=== PATIENT | female | born 1985 | race Two or more races ===

== ENCOUNTER 2019-04-23 11:55 | Emergency (ER) | payer MEDICAID ==
[~2019-04-23] VITALS: Ht 165.1 cm; Wt 112.9 kg
[~2019-04-23 11:55] MED LIST: PREN-96 PO
[2019-04-23 16:56] LABS: Basophils # (auto) 0.1 uL; Basophils % (auto) 0.8 % (0.0-2.0); Eosinophils # (auto) 0.3 uL; Eosinophils % (auto) 3.5 % (0.0-7.0); Hematocrit 45.1 % (36.0-46.0); Lymphocytes % (auto) 26.5 % (10.0-50.0); Mean Corpuscular Hemoglobin 26.6 pg (28.0-32.0); Mean Corpuscular Hgb Conc. 33.2 g/dL (32.0-36.0); Mean Corpuscular Volume 79.9 fL (80.0-100.0); Monocytes # (auto) 0.5 uL; Monocytes % (auto) 6.2 % (0.0-12.0); Neutrophils # (auto) 4.9 uL; Nucleated Red Blood Cells % 0.2 %; Platelet Count (auto) 193 10^3/uL (140-450); Red Blood Cells 5.65 10^6/uL (4.0-5.20); Red Cell Distribution Width 13.5 % (11.8-14.3); White Blood Cell 7.7 10^3/uL (4.4-10.8)
[2019-04-23 21:05] LABS: Urine Bacteria MANY /hpf (None Seen); Urine Blood Negative /uL (Negative); Urine Mucus FEW (None Seen); Urine Specific Gravity 1.015 (1.001-1.035); Urine WBC 13 /hpf (0 - 5)
== END 2019-04-23 23:53 | disposition home or self-care (01) ==
LOC: ER 11:55
DX: O9A.211 Injury, poisoning and certain other consequences of external causes complicating pregnancy, first trimester (principal); S39.011A Strain of muscle, fascia and tendon of abdomen, initial encounter; Z3A.01 Less than 8 weeks gestation of pregnancy; X58.XXXA Exposure to other specified factors, initial encounter; Y93.89 Activity, other specified; Y99.8 Other external cause status; Y92.89 Other specified places as the place of occurrence of the external cause
CPT/HCPCS: 36415; 76801; 81001; 84702; 85025

== ENCOUNTER 2019-10-05 07:14 | Observation (INO) | payer MEDICAID | END 2019-11-12 10:02 | disposition home or self-care (01) | DRG 566 | LOC: LDRP 11-12 08:41 | PROVIDERS: ADMIT Specialist; ATTEND Specialist | DX: O24.419 Gestational diabetes mellitus in pregnancy, unspecified control (principal); Z3A.36 36 weeks gestation of pregnancy | CPT/HCPCS: 59025; 76818; 81002; 82948; 82962; G0378 ==

== ENCOUNTER 2019-11-05 04:32 | Observation (INO) | payer MEDICAID ==
[~2019-11-05] VITALS: Ht 165.1 cm; Wt 131.5 kg
[2019-11-05] MEDS ORDERED: LACTATED RINGER'S 1,000 ML IV ONE (05:20)
[2019-11-05] MEDS ORDERED: TERBUTALINE SULFATE 1 MG/ML 1ML VIAL SC SCH (05:30)
== END 2019-11-05 07:50 | disposition home or self-care (01) | DRG 566 ==
LOC: LDRP 04:32
PROVIDERS: ADMIT Specialist; ATTEND Specialist
DX: O24.419 Gestational diabetes mellitus in pregnancy, unspecified control (principal); Z3A.35 35 weeks gestation of pregnancy
CPT/HCPCS: 59025; 76818; 81002; 82948; 96360; 96361; 96372; G0378; J3105

== ENCOUNTER 2019-11-19 08:10 | Observation (INO) | payer MEDICAID | END 2019-11-19 09:20 | disposition home or self-care (01) | DRG 566 | LOC: LDRP 08:10 | PROVIDERS: ADMIT Specialist; ATTEND Specialist | DX: O24.410 Gestational diabetes mellitus in pregnancy, diet controlled (principal); Z3A.37 37 weeks gestation of pregnancy | CPT/HCPCS: 59025; 76818; 81002; 82948; 82962; G0378 ==

== ENCOUNTER 2019-11-22 11:32 | Observation (INO) | payer MEDICAID | END 2019-11-22 13:18 | disposition home or self-care (01) | LOC: LDRP 11:32 | PROVIDERS: ADMIT Specialist; ATTEND Specialist | DX: O24.410 Gestational diabetes mellitus in pregnancy, diet controlled (principal); O62.9 Abnormality of forces of labor, unspecified; Z3A.37 37 weeks gestation of pregnancy | CPT/HCPCS: 59025; 76818; 82962; G0378; 81002 ==

== ENCOUNTER 2019-11-28 12:16 | Observation (INO) | payer MEDICAID ==
--- NOTE | 2019-11-28 13:05 | NUR ---
PRE OP COVID TEST COLLECTED.
== END 2019-11-28 13:19 | disposition home or self-care (01) ==
LOC: LDRP 12:16
PROVIDERS: ADMIT Obstetrics & Gynecology; ATTEND Obstetrics & Gynecology
DX: Z01.812 Encounter for preprocedural laboratory examination (principal); Z20.828 Contact with and (suspected) exposure to other viral communicable diseases; O24.410 Gestational diabetes mellitus in pregnancy, diet controlled; Z3A.38 38 weeks gestation of pregnancy
CPT/HCPCS: 59025; 81002; 82948; 82962; G0378; U0003

== ENCOUNTER 2019-12-03 08:09 | Inpatient (IN) | payer MEDICAID ==
[2019-12-03] VITALS (9 sets, daily range): BP systolic 104–132; BP diastolic 61–73
[~2019-12-03] VITALS: Ht 30.5 cm; Wt 0.5 kg
[2019-12-03] MEDS ORDERED: LACTATED RINGER'S 1,000 ML IV SCH ×2 (08:16→14:38)
[2019-12-03 09:00] LABS: Basophils # (auto) 0 10 ^3/uL (0-0.2); Eosinophils # (auto) 0.1 10 ^3/uL (0-0.8); Lymphocytes # (auto) 1.4 10 ^3/uL (0.4-5.4); Monocytes # (auto) 0.5 10 ^3/uL (0-1.3); Neutrophils # (auto) 4.2 10 ^3/uL (1.6-8.6); Red Cell Distribution Width 16.1 % (11.8-14.3)
[2019-12-03 09:02] LABS: Basophils % (auto) 0.5 % (0.0-2.0); Eosinophils % (auto) 1.7 % (0.0-7.0); Hematocrit 39.9 % (36.0-46.0); Hemoglobin 12.8 g/dL (12.2-16.2); Lymphocytes % (auto) 22.5 % (10.0-50.0); Mean Corpuscular Hemoglobin 24.5 pg (28.0-32.0); Mean Corpuscular Volume 76.6 fL (80.0-100.0); Monocytes % (auto) 7.4 % (0.0-12.0); Neutrophils % (auto) 67.9 % (37.0-80.0); Nucleated Red Blood Cells % 0.2 %; Platelet Count (auto) 208 10^3/uL (140-450); Red Blood Cells 5.21 10^6/uL (4.0-5.20); White Blood Cell 6.1 10^3/uL (4.4-10.8)
[2019-12-03 09:04] LABS: Urine Bacteria MANY /hpf (None Seen); Urine Blood 1+ /uL (Negative); Urine Mucus FEW (None Seen); Urine Specific Gravity 1.017 (1.001-1.035); Urine WBC 16 /hpf (0 - 5)
[2019-12-03 09:11] LABS: INR 0.92 (0.9-1.15); Partial Thromboplastin Time 26.7 sec (23.0-31.2)
[2019-12-03 09:16] LABS: Albumin 2.6 g/dL (3.4-5.0); Calcium 8.7 mg/dL (8.5-10.1); Potassium 3.9 mmol/L (3.5-5.1)
[2019-12-03 09:20] LABS: BUN/Creatinine Ratio 13.8; Bilirubin, Total 0.4 mg/dL (0.2-1.0); Total Protein 6.7 g/dL (6.4-8.2)
[2019-12-03] MEDS ORDERED: TETRACAINE 1% INJ 2 ML VIAL IJ ONE ×2 (12:31→12:44)
[2019-12-03] MEDS ORDERED: ePHEDrine SULFATE 50 MG/ML AMP ONE (12:38)
[2019-12-03] MEDS ORDERED: PHENYLEPHRINE HCL 10 MG/ML VL ONE (12:38)
[2019-12-03] MEDS ORDERED: ceFAZolin 1GM VL ONE (12:41)
[2019-12-03] MEDS ORDERED: oxyTOCIN 10 UNIT/ML 10ML VIAL ONE (12:42)
[2019-12-03] MEDS ORDERED: MORPHINE SULF(PF) 0.5MG/ML 10ML VIAL ONE (12:44)
[2019-12-03] MEDS ORDERED: MIDAZOLAM HCL 1MG/1ML-2 ML VIAL ONE (14:03)
[2019-12-03] MEDS ORDERED: ACETAMINOPHEN IV 1000 MG/100ML (10MG/ML) IV PRN (14:45)
[2019-12-03] MEDS ORDERED: GUM (CHEWING) 1 GUM CHEW CHEW ONE (14:45)
[2019-12-03] MEDS ORDERED: KETOROLAC TROMETH 30 MG/ML 1ML VIAL IV PRN (14:45)
[2019-12-03] MEDS ORDERED: ceFAZolin 1GM/50ML 50 ML IV SCH (14:45)
[2019-12-03] MEDS ORDERED: HYDROmorphone HCL 2 MG/ML VL IV PRN ×2 (14:45→15:00)
[2019-12-03] MEDS ORDERED: ONDANSETRON HCL 4 MG/2 ML VIAL IV PRN ×3 (14:45→15:00)
[2019-12-03] MEDS ORDERED: ACCU-CHEK COMFORT CURVE STRIP VI ONE (15:00)
[2019-12-03] MEDS ORDERED: diphenhdrAMINE HCL 50 MG/1 ML VL IV PRN (15:00)
[2019-12-03] MEDS ORDERED: NALOXONE HCL 0.4 MG/ML VIAL IV PRN ×2 (15:00)
--- NOTE | 2019-12-03 15:35 | NUR ---
Pt to room 8B from Recovery room Report received by Elida OSWALD. Fundus firm above u moderated bleeding, dressing dry and intact, vs within normal limits, will continue to monitor.
--- NOTE | 2019-12-03 17:00 | NUR ---
PERICARE PROVIDED FUNDUS FIRM 2 ABOVE U, SMALL BLEEDING, PT CLEANED, NEW PAD APPLIED
[2019-12-03] MEDS: KETOROLAC TROMETH 30 MG/ML 1ML VIAL IV PRN (17:05)
--- NOTE | 2019-12-03 17:15 | NUR ---
Teaching: Reviewed information in [facility] [employer] booklet with patient. Discussed benefits of and risks associated with not . Discussed different positions, proper latch, feeding cues, and baby-led . Provided information of medication side effects related to . All questions and concerns addressed at this time. Patient verbalized understanding of information.
[2019-12-03] MEDS ORDERED: TETANUS-DIPTH-ACEL PERTUSSIS 0.5ML SYR Tdap IM ONE (21:45)
[2019-12-03] MEDS: ceFAZolin 1GM/50ML 50 ML IV SCH (22:04)
[2019-12-04] VITALS (9 sets, daily range): BP systolic 104–132; BP diastolic 60–77
--- NOTE | 2019-12-04 02:45 | NUR ---
Ambulation: Patient OOB with standby assistance by RN. Patient ambulated to bedside chair with steady gait. Pericare performed. Clean gown provided and bed linen changed. Patient ambulated back to bed with steady gait and no distress noted.
--- NOTE | 2019-12-04 05:09 | NUR ---
Dillard catheter dc'd Order to discontinue dillard catheter. Dillard dc'd with clean technique following deflation of balloon. 450 ml of clear yellow urine noted. Patient tolerated well with no complaints of pain. Continue care.
[2019-12-04] MEDS: ceFAZolin 1GM/50ML 50 ML IV SCH ×2 (05:30→13:33)
[2019-12-04 07:34] LABS: Basophils # (auto) 0 10 ^3/uL (0-0.2); Basophils % (auto) 0.4 % (0.0-2.0); Eosinophils # (auto) 0.1 10 ^3/uL (0-0.8); Lymphocytes # (auto) 1.1 10 ^3/uL (0.4-5.4); Monocytes # (auto) 0.6 10 ^3/uL (0-1.3); Neutrophils % (auto) 74.4 % (37.0-80.0); Nucleated Red Blood Cells % 0.1 %
[2019-12-04 07:36] LABS: Eosinophils % (auto) 1.5 % (0.0-7.0); Hematocrit 36.7 % (36.0-46.0); Hemoglobin 11.9 g/dL (12.2-16.2); Lymphocytes % (auto) 15.3 % (10.0-50.0); Mean Corpuscular Hemoglobin 24.6 pg (28.0-32.0); Mean Corpuscular Hgb Conc. 32.4 g/dL (32.0-36.0); Mean Corpuscular Volume 76.1 fL (80.0-100.0); Monocytes % (auto) 8.4 % (0.0-12.0); Neutrophils # (auto) 5.2 10 ^3/uL (1.6-8.6); Platelet Count (auto) 168 10^3/uL (140-450); Red Blood Cells 4.82 10^6/uL (4.0-5.20); Red Cell Distribution Width 16.1 % (11.8-14.3)
[2019-12-04 08:11] LABS: RPR Non Reactive (Non Reactive)
[2019-12-04] MEDS: KETOROLAC TROMETH 30 MG/ML 1ML VIAL IV PRN (10:14)
[2019-12-04] MEDS: IBUPROFEN 800 MG TAB PO PRN (15:43)
[2019-12-04] MEDS: HYDROcodone-ACET 5/325MG TAB PO PRN ×2 (17:31→21:32)
[2019-12-04] MEDS: DOCUSATE SOD 100 MG CAP PO SCH (21:29)
--- NOTE | 2019-12-05 02:40 | NUR ---
[place] 5/325mg 1 tab PO given at this time. Patient pain 5/10. [employer] downtime at this time. See hardcopy MAR in chart.
[2019-12-05 02:57] VITALS: BP 111/68
[2019-12-05] MEDS: IBUPROFEN 800 MG TAB PO PRN ×2 (05:21→23:14)
[2019-12-05 07:20] VITALS: BP 115/65
[2019-12-05] MEDS: DOCUSATE SOD 100 MG CAP PO SCH ×2 (10:08→23:15)
[2019-12-05] MEDS: HYDROcodone-ACET 5/325MG TAB PO PRN ×2 (10:09→16:21)
[2019-12-05 11:00] VITALS: BP 104/66
[2019-12-05 15:00] VITALS: BP 113/63
[2019-12-05] MEDS ORDERED: BISACODYL 10 MG RECT SUPP PR ONE (16:30)
[2019-12-05 19:30] VITALS: BP 121/72
--- NOTE | 2019-12-05 19:40 | NUR ---
Bottle-feeding Education: Patient encouraged to breastfeed. Benefits of and the risk of providing formula to was discussed. Patient verbalized understanding of the benefits and is aware of risk and insists on bottle-feeding. Formula provided and instruction on formula preperation from the [facility] booklet reviewed with patient.
[2019-12-05 23:22] VITALS: BP 137/78
[2019-12-06 03:30] VITALS: BP 109/61
[2019-12-06] MEDS: HYDROcodone-ACET 5/325MG TAB PO PRN (04:16)
[2019-12-06 06:52] VITALS: BP 136/71
--- NOTE | 2019-12-06 08:14 | NUR ---
Discharge: Discharge instructions given as ordered. Pt encouraged to follow up with [facility] [employer] [facility] as instructed. All questions and concerns addressed. Patient verbalized understanding. Medication reconciliation completed and copy given to patient. All required/requested vaccines given and copies of vaccinations given to patient. Patient encouraged to prepare to depart unit. Awaiting Prescription.
--- NOTE | 2019-12-06 09:20 | NUR ---
Discharge: Patient taken to vehicle via ambulatory with all personal belongings, accompanied by staff. No distress noted at time of departure, no adverse changes in status since initial assessment.
== END 2019-12-06 09:22 | disposition home or self-care (01) | DRG 540 ==
LOC: LDRP 08:09
PROVIDERS: ADMIT Specialist; ATTEND Specialist
PROC: 0DNU0ZZ Release Omentum, Open Approach (ICD-10-PCS; 2019-12-03)
PROC: 0UL70CZ Occlusion of Bilateral Fallopian Tubes with Extraluminal Device, Open Approach (ICD-10-PCS; 2019-12-03)
PROC: 10D00Z1 Extraction of Products of Conception, Low, Open Approach (ICD-10-PCS; principal; 2019-12-03 13:05)
DX: O99.214 Obesity complicating childbirth (principal); O34.211 Maternal care for low transverse scar from previous cesarean delivery; Z37.0 Single live birth; E66.01 Morbid (severe) obesity due to excess calories; K66.0 Peritoneal adhesions (postprocedural) (postinfection); O99.62 Diseases of the digestive system complicating childbirth; Z3A.39 39 weeks gestation of pregnancy; Z30.2 Encounter for sterilization
CPT/HCPCS: 36415; 59025; 80053; 81001; 81002; 82962; 84112; 85025; 85610; 85730; 86592; 86850; 86900; 86901; 90715; 94762; 96360; 96361; 96365; 96375; G0378; J0131; J0690; J1885; J2250; J2590